=== PATIENT | male | born 1990 | race Caucasian/White ===

== ENCOUNTER 2021-07-24 13:41 | Outpatient (CLI) | payer BC, SELFPAY ==
[2021-07-24 14:28] LABS: D Dimer <= 0.27 ug/mIFEU (0-0.59)
== END 2021-07-24 13:42 | disposition home or self-care (01) ==
PROVIDERS: Visit Provider Family Medicine
DX: R07.9 Chest pain, unspecified (principal)
CPT/HCPCS: 85378

== ENCOUNTER 2021-08-13 12:35 | Outpatient (CLI) | payer BC, SELFPAY ==
--- NOTE | 2021-08-13 13:43 | PFTS_ITS ---
Date of Study:08/13/21 Date of Dictation: MECHANICS: Forced vital capacity (FVC) is normal. Forced expiratory volume in one second (FEV1) is reduced. FEV1/FVC is reduced. FLOW VOLUME LOOP: Reduced flow at all lung volumes with significant scooping. LUNG VOLUMES: Total lung capacity (TLC) is normal. Residual volume (RV) is normal. DIFFUSING CAPACITY FOR CARBON MONOXIDE: Normal but likely erroneous. INTERPRETATION: The prebronchodilator spirometry is consistent with moderate airflow obstruction. No postbronchodilator spirometry was performed. Lung volumes are normal. Gas exchange (DLCO) is normal but likely an erroneous measurement. MTDD
== END 2021-08-13 12:36 | disposition home or self-care (01) ==
LOC: RT 12:38
PROVIDERS: PCP Nurse Practitioner; Visit Provider Nurse Practitioner
DX: J45.909 Unspecified asthma, uncomplicated (principal)
CPT/HCPCS: 94010; 94726; 94729

== ENCOUNTER 2021-09-03 15:32 | Outpatient (CLI) | payer BC, SELFPAY ==
--- NOTE | 2021-09-03 | USCV_ITS ---
DharmeshManuel johnston Age: 30 Gender: M : 1990 Exam Date: 09/03/2021 16:06 Ordering Phys: Kati Hernandez Technologist: LARRY Exam Location: [facility] Indication: c/o constant SOB x 2 months. No hx cardiac intervention. BP: / HR: 64 Rhythm: Sinus Technical Quality: Good MEASUREMENTS (Male / Female) Normal Values 2D ECHO LV Diastolic Diameter PLAX 5.2 cm 4.2 - 5.9 / 3.9 - 5.3 cm LV Systolic Diameter PLAX 3.6 cm IVS Diastolic Thickness 1.2 cm 0.6 - 1.0 / 0.6 - 0.9 cm IVS Systolic Thickness 1.9 cm LVPW Diastolic Thickness 1.2 cm 0.6 - 1.0 / 0.6 - 0.9 cm LVPW Systolic Thickness 1.5 cm LVOT Diameter 1.9 cm LV Ejection Fraction 2D Teich 54.0 % LV Ejection Fraction MOD 2C 71.9 % LV Ejection Fraction 2C AL 73.1 % LA Diameter 3.1 cm LA Width 3.7 cm LA Height 4.0 cm RA Width 4.0 cm RA Height 4.4 cm Aorta at Sinotubular Diameter 3.1 cm M-MODE Aortic Annulus Diameter 3.1 cm LA Ao Ratio MM 0.9 MV E Point Septal Separation 0.3 cm DOPPLER AV Peak Velocity 103.0 cm/s LVOT Peak Velocity 81.0 cm/s AV Area Cont Eq vti 2.0 cm squared AV Area Cont Eq pk 2.3 cm squared MV Peak Velocity 70.0 cm/s MV Area PHT 5.1 cm squared Mitral E to A Ratio 1.2 MV E' Velocity 36.0 cm/s Mitral E to MV E' Ratio 5.9 Mitral E to LV E' Lateral Ratio 5.1 Mitral E to LV E' Septal Ratio 7.1 TR Peak Velocity 209.8 cm/s TR Peak Gradient 17.6 mmHg TV Peak E Velocity 55.0 cm/s Right Atrial Pressure 5.0 mmHg Pulmonary Artery Systolic Pressu 22.6 mmHg PV Peak Velocity 89.0 cm/s RV Acceleration Time 0.1 s RV Ejection Time 0.4 s RV AcT/ET 0.3 FINDINGS Left Ventricle Normal left ventricular size and systolic function, EF 66 %. No regional wall motion abnormalities. Right Ventricle The right ventricle is normal in size and function. Right Atrium The right atrium is normal in size. Left Atrium The left atrium is normal in size. Mitral Valve No gross abnormalities noted Aortic Valve No gross abnormalities noted Tricuspid Valve Mild tricuspid valve regurgitation. Pulmonic Valve No gross abnormalities noted Pericardium Normal pericardium without effusion. Aorta Normal ascending aorta dimension. CONCLUSIONS Normal left ventricular size and systolic function, EF 66 %. No regional wall motion abnormalities. Mild tricuspid valve regurgitation. Normal cardiac chamber sizes. No significant valvular abnormalities. There is no pericardial effusion. No previous study is available for comparison. Dr Pili Chairez MD FACC (Electronically Signed) Final Date: 03 September 2021 17:40 S
== END 2021-09-03 15:33 | disposition home or self-care (01) ==
PROVIDERS: PCP Nurse Practitioner; Visit Provider Nurse Practitioner
DX: R94.31 Abnormal electrocardiogram [ECG] [EKG] (principal); I07.1 Rheumatic tricuspid insufficiency
CPT/HCPCS: 93306

== ENCOUNTER 2021-10-15 19:44 | Emergency (ER) | payer BC, SELFPAY ==
--- NOTE | 2021-10-15 19:51 | ECG_ITS ---
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 Measurements Intervals [place] Rate: 76 P: 64 DC: 167 QRS: 86 QRSD: 102 T: 58 QT: 375 QTc: 423 Interpretive Statements SINUS RHYTHM INTERPRETATION BASED ON A DEFAULT AGE OF 40 YEARS No previous ECG available for comparison Electronically Signed On 10-16-2021 20:03:25 HIGH SCHOOL FOOTBALL COACH by Pili Chairez M.D. [id number]
[2021-10-15 19:53] VITALS: BP 135/83; PULSE 75; RESP 28; TEMP 36.3; O2SAT 100; BMI 27.4
--- NOTE | 2021-10-15 20:55 | ED_ITS ---
HPI - Chest Pain General: Chief Complaint: Chest Pain Stated Complaint: Chest pain/SOB Time Seen by Provider: 10/15/21 20:55 History of Present Illness: 31-year-old male patient comes in today for concerns of being awakened at night with a cough. Patient also reports some epigastric discomfort and sternal chest pain. Patient reports symptoms been going on for approximately 4 months. Patient was evaluated about 6 months ago had a EKG done which shows some abnormalities at that time a echocardiogram was performed and a tricuspid valve mild regurgitation was noted. Patient has been placed on some sertraline for concerns of anxiety. Patient denies any drug allergies. Patient reports used to smoke tobacco but has been more than 5 years. Denies any other drugs or alcohol. Patient has no history of surgeries. Patient reports that his family history includes his mother has arrhythmia. MD complaint: chest discomfort Pertinent past history: asthma (Patient denies asthma although it is in the record) Onset (ago): month(s) Relieving factors: nothing Exacerbating factors: nothing Associated symptoms: Reports palpitations Review of Systems General: Reports: 10 or more systems reviewed and unremarkable except in HPI and below Card: Reports: chest pain and palpitations Physical Exam Const: COMMON NORMALS: alert HENMT: COMMON NORMALS: atraumatic HEAD & SCALP: atraumatic Resp: COMMON NORMALS: normal respiratory effort and clear to auscultation bilaterally AUSCULTATION: clear to auscultation bilaterally Cardio: COMMON NORMALS: regular rate and regular rhythm RATE: regular rate RHYTHM: regular rhythm GI: COMMON NORMALS: Soft to palpation PALPATION: Yes Soft to palpation Extremity: COMMON NORMALS: normal to inspection and no pedal edema Neuro: SENSORIUM/ORIENTATION: Yes alert Psych: COMMON NORMALS: cooperative MOOD & AFFECT: Yes anxious Skin: COMMON NORMALS: no rashes or lesions noted GENERAL SKIN EXAM: no rashes or lesions noted Course Vital Signs: Vital signs: Vital Signs Temperature 97.4 F L 10/15/21 19:53 Pulse Rate 75 10/15/21 19:53 Respiratory Rate 28 H 10/15/21 19:53 Blood Pressure 135/83 10/15/21 19:53 Pulse Oximetry 100 10/15/21 19:53 MDM - Chest Pain Medical Decision Making 31-year-old male patient comes in today with complaints of chest discomfort and episodes of coughing at night with some shortness of breath. On exam patient appears well. Patient appears no acute distress. Abdomen is soft and nontender. No chest wall tenderness is noted. Heart rate is regular. Vital signs are normal. Differential diagnosis includes but not limited to ACS, pneumonia, GERD. Laboratory values were normal. Chest x-ray was normal. EKG was normal. Reviewing patient's complaints and symptoms I think he might have some GERD which is causing some coughing fits at night. I am going to start patient on some pantoprazole for a trial to see if we can get improvements. Patient should continue with plan for cardiology and pulmonology evaluation, although this probably be the explanation for patient's symptoms. Lab Data : 10/15/21 21:05 10/15/21 21:05 Radiology Impressions Chest X-Ray 10/15/21 IMPRESSION: No acute findings. Laboratory Results WBC 9.3 10^3/uL (4.0-10.0) 10/15/21 21:05 RBC 5.39 10^6/uL (4.1-5.3) H 10/15/21 21:05 Hgb 16.3 g/dL (11.7-16.6) 10/15/21 21:05 Hct 47.5 % (42.0-52.0) 10/15/21 21:05 MCV 88.1 fl (80-94) 10/15/21 21:05 MCH 30.2 pg (28.0-34.0) 10/15/21 21:05 MCHC 34.3 g/dL (30.0-36.0) 10/15/21 21:05 RDW 11.6 % (12.1-15.1) L 10/15/21 21:05 Plt Count 218 10^3/cmm (130-400) 10/15/21 21:05 MPV 9.3 fL (7.4-10.4) 10/15/21 21:05 Neut % (Auto) 64.3 % 10/15/21 21:05 Lymph % (Auto) 23.9 % 10/15/21 21:05 [place] % (Auto) 7.4 % 10/15/21 21:05 Eos % (Auto) 3.8 % 10/15/21 21:05 Baso % (Auto) 0.3 % 10/15/21 21:05 Neut # (Auto) 5.95 10^3/uL (1.8-7.7) 10/15/21 21:05 Lymph # (Auto) 2.2 10^3/uL (0.8-4.8) 10/15/21 21:05 Boy[place] # (Auto) 0.7 10^3/uL (0.2-0.9) 10/15/21 21:05 Eos # (Auto) 0.4 10^3/uL (0.0-0.8) 10/15/21 21:05 Baso # (Auto) 0.0 10^3/uL (0.0-0.1) 10/15/21 21:05 Nucleated RBC % (auto) 0 % 10/15/21 21:05 Nucleated RBCs # 0.0 /100WBC 10/15/21 21:05 Sodium 139 mmol/L (136-145) 10/15/21 21:05 Potassium 3.6 mmol/L (3.5-5.1) 10/15/21 21:05 Chloride 102 mmol/L (98-107) 10/15/21 21:05 Carbon Dioxide 23 mmol/L (22-29) 10/15/21 21:05 Anion Gap 17.6 (5-19) 10/15/21 21:05 BUN 21 mg/dL (6-20) H 10/15/21 21:05 Creatinine 0.9 mg/dL (0.7-1.2) 10/15/21 21:05 GFR Calculation 97.8 mL/min (90-130) 10/15/21 21:05 Glucose 101 mg/dL (65-115) 10/15/21 21:05 Calculated Osmolality 291 mOsm/kg (285-295) 10/15/21 21:05 Calcium 9.8 mg/dL (8.5-10.5) 10/15/21 21:05 Total Bilirubin 0.4 mg/dL (0.15-1.2) 10/15/21 21:05 AST 22 U/L (0-40) 10/15/21 21:05 ALT 26 U/L (0-41) 10/15/21 21:05 Alkaline Phosphatase 68 IU/L (40-130) 10/15/21 21:05 Troponin T Baseline 6 ng/L (0-15) 10/15/21 21:05 Total Protein 7.3 g/dL (6.6-8.7) 10/15/21 21:05 Albumin 4.9 g/dL (3.5-5.2) 10/15/21 21:05 Globulin 2.4 g/dL (1.3-4.6) 10/15/21 21:05 EKG Data EKG 1: EKG interpretation date: 10/15/21 EKG interpretation time: 22:35 Interpretation: EKG shows a sinus rhythm with regular rate at 75 bpm. No ectopy or ST elevation is noted. No prior exam was available for comparison. Discharge Plan Discharge Patient Disposition: Home Clinical Impression: Atypical chest pain GERD (gastroesophageal reflux disease) Qualifiers: Esophagitis presence: esophagitis presence not specified Qualified Code(s): K21.9 - Gastro-esophageal reflux disease without esophagitis Condition: Stable Prescriptions: New pantoprazole 40 mg tablet,delayed release (DR/EC) 40 mg PO DAILY 28 Days Qty: 30 0RF Discharge Orders: Discharge ED (Routine); Ordered 10/15/21 Ordered By: Chris Pennington Referrals: Kati Hernandez FNP [Primary Care Provider] - Discharge Diet: Usual diet Discharge Activity: Increase activity as tolerated Patient Instructions: GERD (Gastroesophageal Reflux Disease) (ED) Activity Restrictions/Additional Instructions: Home and rest. Continue with routine care. Avoid eating 2 hours before bedtime. Decrease consumption of carbonated beverages. Healthy diet and activity. Follow-up with specialists as scheduled. Return to ER for new concerns. Coding Level of Care Code ED Plant Protection Superintendent for Chg Fwd Exam Comprehensive
[2021-10-15 21:07] LABS: Basophils % 0.3 %; Eosinophils # 0.4 10^3/uL (0.0-0.8); Eosinophils % 3.8 %; Hematocrit 47.5 % (42.0-52.0); Hemoglobin 16.3 g/dL (11.7-16.6); Lymphocytes # 2.2 10^3/uL (0.8-4.8); Lymphocytes % 23.9 %; Mean Corpuscular HGB Conc 34.3 g/dL (30.0-36.0); Mean Corpuscular Hemoglobin 30.2 pg (28.0-34.0); Mean Corpuscular Volume 88.1 fl (80-94); Mean Platelet Volume 9.3 fL (7.4-10.4); Monocytes # 0.7 10^3/uL (0.2-0.9); Monocytes % 7.4 %; Neutrophils # 5.95 10^3/uL (1.8-7.7); Neutrophils % 64.3 %; Nucleated Red Blood Cells % 0 %; Platelet Count 218 10^3/cmm (130-400); Red Blood Count 5.39 10^6/uL (4.1-5.3); Red Cell Distribution Width 11.6 % (12.1-15.1); White Blood Count 9.3 10^3/uL (4.0-10.0)
[2021-10-15 21:23] LABS: Troponin(5th) Baseline 6 ng/L (0-15)
--- NOTE | 2021-10-15 21:23 | XRR_ITS ---
PROCEDURE INFORMATION: Exam: XR Chest Exam date and time: 10/15/2021 9:23 PM Age: 31 years old Clinical indication: Chest wall pain; Additional info: Chest pressure TECHNIQUE: Imaging protocol: XR of the chest. Views: 1 view. COMPARISON: CR XR chest 2V* [id number] 07/23/2021 8:39 AM FINDINGS: Lungs: Unremarkable. No consolidation. Pleural spaces: Unremarkable. No pleural effusion. No pneumothorax. Heart/Mediastinum: Unremarkable. No cardiomegaly. Bones/joints: Unremarkable. XR/XR chest 1V portable [id number] IMPRESSION: No acute findings.
[2021-10-15 21:24] LABS: Alanine Aminotransferase 26 U/L (0-41); Albumin Level 4.9 g/dL (3.5-5.2); Alkaline Phosphatase 68 IU/L (40-130); Aspartate Amino Transferase 22 U/L (0-40); Blood Urea Nitrogen 21 mg/dL (6-20); Calcium 9.8 mg/dL (8.5-10.5); Carbon Dioxide 23 mmol/L (22-29); Chloride 102 mmol/L (98-107); Globulin 2.4 g/dL (1.3-4.6); Glomerular Filtration Rate 97.8 mL/min (90-130); Glucose 101 mg/dL (65-115); Osmolality Calculated 291 mOsm/kg (285-295); Sodium 139 mmol/L (136-145); Total Bilirubin 0.4 mg/dL (0.15-1.2); Total Protein 7.3 g/dL (6.6-8.7)
[2021-10-15 21:26] LABS: Anion Gap 17.6 (5-19); Potassium 3.6 mmol/L (3.5-5.1)
[2021-10-15 23:05] VITALS: BP 115/79; PULSE 62; RESP 16; O2SAT 97
== END 2021-10-15 23:06 | disposition home or self-care (01) ==
PROVIDERS: Emergency Medicine; Emergency Provider Nurse Practitioner Family; PCP Nurse Practitioner
DX: R07.89 Other chest pain (principal); K21.9 Gastro-esophageal reflux disease without esophagitis
CPT/HCPCS: 71045; 80053; 84484; 85025; 93005

== ENCOUNTER → 2021-11-07 16:25 | Outpatient (BNVA) | payer BC, SELFPAY | PROVIDERS: PCP Nurse Practitioner; Visit Provider Internal Medicine Critical Care Medicine | DX: J45.909 Unspecified asthma, uncomplicated (principal); R06.02 Shortness of breath; F41.9 Anxiety disorder, unspecified | CPT/HCPCS: 82785; 86003 ==

== ENCOUNTER 2022-02-07 07:50 | Day surgery (SDC) | payer BC, SELFPAY ==
[2022-02-06 11:38] VITALS: BMI 25.7
[2022-02-07 08:17] VITALS: BP 130/81; PULSE 65; RESP 16; TEMP 36.4; O2SAT 97
[2022-02-07] MEDS: sodium chloride 0.9% 1,000 ML 30 ML IV (08:36)
--- NOTE | 2022-02-07 08:56 | ANES.PREANE2 ---
Pre-Anesthetic Assessment Height/Weight: Height 1.63 m Weight 68.039 kg Temp Pulse Resp BP Pulse Ox 97.6 F 65 16 130/81 97 02/07/22 08:17 02/07/22 08:17 02/07/22 08:17 02/07/22 08:17 02/07/22 08:17 Preop Diagnosis: upper gi symptoms Operation Date: 02/07/22 10:00 Proposed Procedures p EGD 08729/r10.9(Not Applicable) - Myron Mann MD Familial anesthetic complications: None Was Beta Ronda taken within 24 hours: N/A Was Clonidine taken within 24 hours: N/A Last intake: Intake Last Liquid Date 02/06/22 Last Liquid Time 21:00 Last Solid Date 02/06/22 Last Solid Time 18:00 Social No alcohol and No tobacco Exam alert, oriented x 3, clear to auscultation bilaterally and regular rate & rhythm Airway Submandibular: within normal limits Cervical ROM: within normal limits Mallampati: Class II Dentition: full Comments: Comments: braces Pulmonary Asthma Neuropsych Anxiety Anesthetic Plan ASA status: 2 Anesthesia: MAC Medications/Allergies Home Medications Medication Instructions Recorded Confirmed Last Taken Type sertraline 25 mg tablet 25 mg PO DAILY 10/28/21 02/07/22 02/06/22 History fluticasone furoate 200 1 inh INHALATION DAILY 30 Days #60 01/10/22 02/07/22 02/05/22 Rx mcg-vilanterol 25 mcg/dose ea inhalation powder (Breo Ellipta) montelukast 10 mg tablet 10 mg PO DAILY 60 Days #60 tab 01/10/22 02/07/22 02/06/22 Rx (Singulair) Allergies Allergy/AdvReac Type Severity Reaction Status Date / Time No Known Allergies Allergy Verified 02/07/22 08:13 Current Medications Generic Name Dose Route Start Last Admin Trade Name Freq PRN Reason Stop Dose Admin Sodium Chloride 1,000 mls @ 30 mls/hr 02/07/22 08:15 02/07/22 08:36 Sodium Chloride 0.9% IV 02/08/22 08:14 30 mls/hr .Q24H BILL Administration PFSH Anesthesia Medical History Anxiety Asthma Tricuspid valve regurgitation Family History Mother Arrhythmia Social History Smoking and tobacco status: never smoked Alcohol intake: former Data Anesthesia Cardiac Studies: Echocardiogram 09/03/21 Holter Monitor 10/29/21
--- NOTE | 2022-02-07 10:54 | W.PM.OPSFHP ---
Same Day Surgery H&P Indication for Procedure/HPI DATE OF PROCEDURE: February 07, 2022 CHIEF COMPLAINT/INDICATIONFOR SURGICAL PROCEDURE: egd PREOP DIAGNOSIS: upper gi symptoms PLANNED PROCEDURE: Operation Date: 02/07/22 10:00 Proposed Procedures p EGD 41652/r10.9(Not Applicable) - Myron Mann MD Medications/Allergies* Home Medications Medication Instructions Recorded Confirmed Type sertraline 25 mg tablet 25 mg PO DAILY 10/28/21 02/07/22 History Allergies/Adverse Reactions Allergy/AdvReac Type Severity Reaction Status Date / Time No Known Allergies Allergy Verified 02/07/22 08:13 Current Medications: Generic Name Dose Route Start Last Admin Trade Name Freq PRN Reason Stop Dose Admin Sodium Chloride 1,000 mls @ 30 mls/hr 02/07/22 08:15 02/07/22 08:36 Sodium Chloride 0.9% IV 02/08/22 08:14 30 mls/hr .Q24H BILL Administration Pertinent History/Comorbid Conditions* Medical History (Updated 12/17/21 @ 14:32 by Myron Mann MD) Anxiety Asthma Tricuspid valve regurgitation Family History (Updated 10/28/21 @ 12:53 by Ashly Hickman RN) Arrhythmia Mother Social History Smoking and tobacco status: never smoked Alcohol intake: former Pertinent Exam Findings alert, oriented x 3 and regular rate & rhythm Recommendations Surgery/Procedure today Coding Level of Care Code Acute Facility Mechanic for Alexei Ladd
[2022-02-07 11:19] VITALS: BP 103/65; PULSE 59; RESP 18; TEMP 36.2; O2SAT 96
[2022-02-07 11:32] VITALS: BP 113/68; PULSE 55; RESP 18; O2SAT 97
--- NOTE | 2022-02-07 12:04 | ANE.PACU2 ---
Inpatient post-anesthesia follow up: Airway intact: Yes Vital signs: Temperature 97.1 F Pulse Rate 55 Respiratory Rate 18 Blood Pressure 113/68 Pulse Oximetry 97 Oxygen Delivery Me thod Room Air Oxygen Flow Rate 4 Fraction of Inspir ed Oxygen Hydration adequate: Yes Nausea and vomiting: No Pain level: 1 Mental status: Baseline
== END 2022-02-07 11:38 | disposition home or self-care (01) ==
PROVIDERS: Visit Provider Surgery
PROC: 0DJ08ZZ Inspection of Upper Intestinal Tract, Via Natural or Artificial Opening Endoscopic (ICD-10-PCS; CPT 43235; principal; 2022-02-07 10:00)
DX: R10.9 Unspecified abdominal pain (principal)
CPT/HCPCS: 43239; 88305; J2704; J7030

== ENCOUNTER 2022-03-14 07:04 | Outpatient (CLI) | payer BC, SELFPAY ==
--- NOTE | 2022-03-14 07:00 | US_ITS ---
WS: [id number] ULTRASOUND ABDOMEN LIMITED CLINICAL INFORMATION: R10.9 - Unspecified abdominal pain COMPARISON: None. FINDINGS: Liver Size: Normal. Craniocaudal length: 15.7 cm. Echogenicity: Normal. Surface nodularity: None. Mass (size and location): None. Bile ducts Intrahepatic ducts: Normal. Common bile duct diameter: 0.4 cm. Gallbladder Normal. Gallstones: None. Gallbladder sludge: None. Gallbladder wall thickening: None. Pericholecystic fluid: None. Sonographic Mclain sign: Absent. Pancreas Normal as visualized. Right kidney: Normal. Hydronephrosis: None. Size: 11.2 cm x 4.9 cm x 4.8 cm. Abdominal aorta and IVC Visualized portions are normal. Ascites: None. US/US gall bladder 01312 IMPRESSION: 1. Normal liver. 2. Normal gallbladder. No cholelithiasis. 3. Normal common bile duct. 4. No hydronephrosis in RIGHT kidney. 5. No ascites.
== END 2022-03-14 07:05 | disposition home or self-care (01) ==
PROVIDERS: Visit Provider Surgery
DX: R10.9 Unspecified abdominal pain (principal)
CPT/HCPCS: 76705

== ENCOUNTER 2025-02-02 00:26 | Emergency (ER) | payer OTHER, SELFPAY ==
[2025-02-02 00:29] VITALS: BP 165/85; PULSE 79; RESP 18; TEMP 36.4; O2SAT 100; BMI 27.4
[2025-02-02] MEDS: sodium chloride 0.9% 1,000 ML 999 ML IV (01:10)
[2025-02-02] MEDS: diazePAM 5 mg Tablet PO (01:10)
--- NOTE | 2025-02-02 01:12 | ECG_ITS ---
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 Measurements Intervals [place] Rate: 55 P: 57 VA: 194 QRS: 71 QRSD: 105 T: 50 QT: 408 QTc: 391 Interpretive Statements SINUS BRADYCARDIA INCOMPLETE RIGHT BUNDLE BRANCH BLOCK [90+ ms QRS DURATION, TERMINAL R IN V1/V2, 40+ ms S IN I/aVL/V4/V5/V6] Compared to ECG 10/15/2021 20:04:50 Incomplete right bundle-branch block now present Sinus rhythm no longer present Electronically Signed On 02-03-2025 14:59:13 CDT by Jay Sifuentes M.D. [id number] [id number]
[2025-02-02 01:22] LABS: Basophils % 0.3 %; Eosinophils # 0.2 10^3/uL (0.0-0.8); Eosinophils % 3.4 %; Hematocrit 44.6 % (37-53); Lymphocytes # 1.6 10^3/uL (0.8-4.8); Lymphocytes % 25.9 %; Mean Corpuscular HGB Conc 34.3 g/dL (30-55); Mean Corpuscular Hemoglobin 30.4 pg (27-33); Mean Corpuscular Volume 88.7 fl (82-101); Mean Platelet Volume 9.5 fL (7.4-10.4); Monocytes # 0.6 10^3/uL (0.2-0.9); Monocytes % 8.9 %; Neutrophils # 3.76 10^3/uL (1.8-7.7); Neutrophils % 61.2 %; Nucleated Red Blood Cells % 0 %; Platelet Count 205 10^3/cmm (157-399); Red Blood Count 5.03 10^6/uL (3.85-5.65); Red Cell Distribution Width 11.9 % (12.1-15.1); White Blood Count 6.15 10^3/uL (3.29-11.43)
[2025-02-02 02:09] LABS: Alanine Aminotransferase 21 U/L (0-41); Albumin Level 3.8 g/dL (3.5-5.2); Alkaline Phosphatase 55 U/L (40-130); Anion Gap 15.3 (5-19); Aspartate Amino Transferase 17 U/L (0-40); Blood Urea Nitrogen 17 mg/dL (6-20); Calcium 8.8 mg/dL (8.5-10.5); Carbon Dioxide 24 mmol/L (22-29); Chloride 105 mmol/L (98-107); Creatinine Clr Calc Pharmacy 134.4792; Globulin 2.2 g/dL (1.3-4.6); Glomerular Filtration Rate 128.3 mL/min (90-130); Glucose 102 mg/dL (65-115); Osmolality Calculated 294 mOsm/kg (285-295); Potassium 3.3 mmol/L (3.5-5.1); Sodium 141 mmol/L (136-145); Thyroid Stimulating Hormone 4.04 uIU/mL (0.27-4.20); Total Bilirubin 0.4 mg/dL (0.15-1.2)
--- NOTE | 2025-02-02 03:14 | W.ED.ANXIETY ---
HPI - Anxiety General: Chief Complaint: Anxiety Stated Complaint: Panic Attack Time Seen by Provider: 02/02/25 00:53 History of Present Illness: Pt with a history of anxiety and panic attacks reports restarting Zoloft approximately three weeks ago after being off for about a year. Since restarting, pt describes significantly worsened anxiety and panic, with persistent symptoms including inability to sleep, feeling of constant adrenaline, chest tightness, dry mouth, and a slight headache. Pt denies fever, cough, abdominal pain, nausea, or vomiting. No other medication changes reported. Pt states these panic attacks are more severe than previous episodes and have persisted without relief for three weeks. Pt has continued working during this period but feels exhausted and at their limit due to lack of sleep. Related Data Home Medications ?Medication ?Instructions ?Recorded ?Confirmed sertraline 25 mg tablet 25 mg PO DAILY 10/28/21 10/16/22 Previous Rx's ?Medication ?Instructions ?Recorded pantoprazole 40 mg tablet,delayed 40 mg PO ONCE 30 days #30 tabs 03/18/22 release (Protonix) dicyclomine 10 mg capsule 10 mg PO QID #120 caps 08/29/22 albuterol sulfate 90 mcg/actuation 1 inh inhalation QID PRN shortness 10/16/22 aerosol inhaler (Ventolin HFA) of breath or wheezing #8.5 grams fluticasone furoate 100 1 inh inhalation DAILY #60 ea 10/20/22 mcg-vilanterol 25 mcg/dose inhalation powder (Breo Ellipta) montelukast 10 mg tablet 10 mg PO DAILY 60 days #60 tabs 03/30/23 (Singulair) clonazepam 0.5 mg tablet (Klonopin) 0.5 mg PO DAILY PRN panic attack 02/02/25 #14 tabs Allergies Allergy/AdvReac Type Severity Reaction Status Date / Time No Known Allergies Allergy Verified 10/16/22 08:48 [facility] ED PFSH: Medical History Anxiety Asthma Tricuspid valve regurgitation Surgical History History of esophagogastroduodenoscopy (EGD) 02/07/22 Family History Mother Arrhythmia Social History Smoking and tobacco/nicotine status: former use of tobacco/nicotine Quit status (tobacco/nicotine): has quit using Year quit tobacco: 2014 Former quit date comment: 1ppd x 4 years Alcohol intake: former Substance/Drug Use: never Physical Exam Const: COMMON NORMALS: no acute distress, patient oriented x3 and alert HENMT: COMMON NORMALS: normocephalic and atraumatic HEAD & SCALP: normocephalic and atraumatic Eye: COMMON NORMALS: Equal, round and reactive pupils present, EOMs intact bilaterally and no scleral icterus PUPIL: Yes Equal, round and reactive pupils present Resp: COMMON NORMALS: normal respiratory effort and No retractions Cardio: COMMON NORMALS: regular rate, regular rhythm and No murmurs present (Cardio) RATE: regular rate RHYTHM: regular rhythm GI: COMMON NORMALS: Normal to inspection, nondistended, normoactive bowel sounds present, Soft to palpation and non-tender PALPATION: Yes Soft to palpation Neuro: COMMON NORMALS: patient oriented x3 SENSORIUM/ORIENTATION: Yes alert Psych: OTHER: Anxious, no SI or HI, no delusions or hallucinations. Skin: COMMON NORMALS: no rashes or lesions noted GENERAL SKIN EXAM: no rashes or lesions noted Course Vital Signs: Vital signs: Vital Signs Temperature 97.5 F L 02/02/25 00:29 Pulse Rate 79 02/02/25 00:29 Respiratory Rate 18 02/02/25 00:29 Blood Pressure 165/85 02/02/25 00:29 Pulse Oximetry 100 02/02/25 00:29 MDM - Anxiety Medical Decision Making In summary, patient is a generally well-appearing 34-year-old male seen for what appears to be a panic attack. He states that he is not able to sleep very well for the last 3 weeks, only sleeping for roughly 1 to 2 hours at a time. He has been taking his normal prescribed sertraline without effect for 3 weeks. After receiving a single dose of 0.5 mg clonazepam he was able to sleep and feels much better. I cautioned him that he should only take clonazepam when feeling excessive levels of panic and that taking it every day can lead to habituation and dependence. He shows good understanding and agrees to the plan and will be discharged in stable and improved condition follow-up primary care for further management of what appears to be a panic attack superimposed on anxiety Lab Data 02/02/25 01:11 02/02/25 01:33 Laboratory Results WBC 6.15 10^3/uL (3.29-11.43) 02/02/25 01:11 RBC 5.03 10^6/uL (3.85-5.65) 02/02/25 01:11 Hgb 15.30 g/dL (11.27-16.99) 02/02/25 01:11 Hct 44.6 % (37-53) 02/02/25 01:11 MCV 88.7 fl (82-101) 02/02/25 01:11 MCH 30.4 pg (27-33) 02/02/25 01:11 MCHC 34.3 g/dL (30-55) 02/02/25 01:11 RDW 11.9 % (12.1-15.1) L 02/02/25 01:11 Plt Count 205 10^3/cmm (157-399) 02/02/25 01:11 MPV 9.5 fL (7.4-10.4) 02/02/25 01:11 Neut % (Auto) 61.2 % 02/02/25 01:11 Lymph % (Auto) 25.9 % 02/02/25 01:11 [place] % (Auto) 8.9 % 02/02/25 01:11 Eos % (Auto) 3.4 % 02/02/25 01:11 Baso % (Auto) 0.3 % 02/02/25 01:11 Neut # (Auto) 3.76 10^3/uL (1.8-7.7) 02/02/25 01:11 Lymph # (Auto) 1.6 10^3/uL (0.8-4.8) 02/02/25 01:11 [place] # (Auto) 0.6 10^3/uL (0.2-0.9) 02/02/25 01:11 Eos # (Auto) 0.2 10^3/uL (0.0-0.8) 02/02/25 01:11 Baso # (Auto) 0.0 10^3/uL (0.0-0.1) 02/02/25 01:11 Nucleated RBC % (auto) 0 % 02/02/25 01:11 Nucleated RBCs # 0.0 /100WBC 02/02/25 01:11 Sodium 141 mmol/L (136-145) 02/02/25 01:33 Potassium 3.3 mmol/L (3.5-5.1) L 02/02/25 01:33 Chloride 105 mmol/L (98-107) 02/02/25 01:33 Carbon Dioxide 24 mmol/L (22-29) 02/02/25 01:33 Anion Gap 15.3 (5-19) 02/02/25 01:33 BUN 17 mg/dL (6-20) 02/02/25 01:33 Creatinine 0.7 mg/dL (0.7-1.2) 02/02/25 01:33 GFR Calculation 128.3 mL/min (90-130) 02/02/25 01:33 Glucose 102 mg/dL (65-115) 02/02/25 01:33 Calculated Osmolality 294 mOsm/kg (285-295) 02/02/25 01:33 Calcium 8.8 mg/dL (8.5-10.5) 02/02/25 01:33 Total Bilirubin 0.4 mg/dL (0.15-1.2) 02/02/25 01:33 AST 17 U/L (0-40) 02/02/25 01:33 ALT 21 U/L (0-41) 02/02/25 01:33 Alkaline Phosphatase 55 U/L (40-130) 02/02/25 01:33 Total Protein 6.0 g/dL (6.6-8.7) L 02/02/25 01:33 Albumin 3.8 g/dL (3.5-5.2) 02/02/25 01:33 Globulin 2.2 g/dL (1.3-4.6) 02/02/25 01:33 TSH 4.04 uIU/mL (0.27-4.20) 02/02/25 01:33 No radiology studies performed this visit EKG Data EKG 1: Interpretation: Time?0112?sinus bradycardia, rate of 55, no ST segment elevation or depression, no T wave inversions, intervals within normal limits. QTc = 396 Discharge Plan Discharge Patient Disposition: Home Clinical Impression: Acute anxiety Condition: Stable Prescriptions: New clonazepam [Klonopin] 0.5 mg tablet 0.5 mg PO DAILY PRN (Reason: panic attack) Qty: 14 0RF No Action sertraline 25 mg tablet 25 mg PO DAILY pantoprazole [Protonix] 40 mg tablet,delayed release (DR/EC) 40 mg PO ONCE 30 Days Qty: 30 3RF albuterol sulfate [Ventolin HFA] 90 mcg/actuation HFA aerosol inhaler 1 inh inhalation QID PRN (Reason: shortness of breath or wheezing) Qty: 8.5 3RF dicyclomine 10 mg capsule 10 mg PO QID Qty: 120 11RF fluticasone furoate-vilanterol [Breo Ellipta] 100-25 mcg/dose blister with device 1 inh inhalation DAILY Qty: 60 3RF montelukast [Singulair] 10 mg tablet 10 mg PO DAILY 60 Days Qty: 60 6RF Discharge Orders: Discharge ED (Routine); Ordered 02/02/25 Ordered By: Johnathan Lay Patient Instructions: Panic Attack (ED) Activity Restrictions/Additional Instructions: Please follow-up closely with your primary care physician to see whether they would like to continue giving you the medication I prescribed for panic attacks. This should not be something you take on a daily basis but only when you have severe panic attacks. Please continue taking all your other medications as prescribed. Print Language: Kyrgyz Coding Level of Care Code ED Lens Molding Equipment Operator for Alexei Ladd
[2025-02-02 03:19] VITALS: BP 121/68; PULSE 57; O2SAT 97
== END 2025-02-02 03:24 | disposition home or self-care (01) ==
PROVIDERS: Emergency Provider Student in an Organized Health Care Education/Training Program
DX: F41.9 Anxiety disorder, unspecified (principal); F41.0 Panic disorder [episodic paroxysmal anxiety]; Z79.899 Other long term (current) drug therapy
CPT/HCPCS: 36415; 80053; 84443; 85025; 93005; 96360; 96361; 99284; J7030; J9999

== ENCOUNTER 2025-02-26 09:59 | Emergency (ER) | payer OTHER, SELFPAY ==
[2025-02-26 10:12] VITALS: BP 143/90; PULSE 79; RESP 18; TEMP 36.8; O2SAT 99; BMI 24.0
--- NOTE | 2025-02-26 10:21 | W.ED.PSYCHS ---
Documented by User: Remi Banuelos MD 02/26/25 11:35 HPI - Psych General: Chief Complaint: Psychiatric Symptoms Stated Complaint: SI Time Seen by Provider: 02/26/25 10:05 Source: patient Mode of arrival: ambulatory Limitations: no limitations History of Present Illness: 34-year-old male he states that he has been having increased anxiety and depression. He states he has been on Lexapro and he has not been sleeping well it is causing him to have severe depression he denies any suicidal plans to me. He states has been on multiple different meds lately and they are not helping and states that he just feels like he needs help immediately. He is having some suicidal thoughts but no plan Associated symptoms: Reports depression and suicidal ideation Related Data Home Medications ?Medication ?Instructions ?Recorded ?Confirmed sertraline 25 mg tablet 25 mg PO DAILY 10/28/21 10/16/22 Previous Rx's ?Medication ?Instructions ?Recorded pantoprazole 40 mg tablet,delayed 40 mg PO ONCE 30 days #30 tabs 03/18/22 release (Protonix) dicyclomine 10 mg capsule 10 mg PO QID #120 caps 08/29/22 albuterol sulfate 90 mcg/actuation 1 inh inhalation QID PRN shortness 10/16/22 aerosol inhaler (Ventolin HFA) of breath or wheezing #8.5 grams fluticasone furoate 100 1 inh inhalation DAILY #60 ea 10/20/22 mcg-vilanterol 25 mcg/dose inhalation powder (Breo Ellipta) montelukast 10 mg tablet 10 mg PO DAILY 60 days #60 tabs 03/30/23 (Singulair) clonazepam 0.5 mg tablet (Klonopin) 0.5 mg PO DAILY PRN panic attack 02/02/25 #14 tabs Allergies Allergy/AdvReac Type Severity Reaction Status Date / Time No Known Allergies Allergy Verified 10/16/22 08:48 Review of Systems Const: Denies: fever(s), chills, body aches or change in appetite Eyes: Denies: blurry vision or eye discomfort ENMT: Denies: throat pain or dental pain Card: Denies: chest pain Resp: Denies: dyspnea GI: Denies: abdominal pain, nausea, vomiting or diarrhea : Denies: dysuria Musc: Denies: neck pain or back pain Skin/Breast: Denies: rash Neuro: Denies: headache(s) Psych: Reports: depression and suicidal ideation PFSH ED PFSH: Medical History Anxiety Asthma Tricuspid valve regurgitation Surgical History History of esophagogastroduodenoscopy (EGD) 02/07/22 Family History Mother Arrhythmia Social History Smoking and tobacco/nicotine status: former use of tobacco/nicotine Quit status (tobacco/nicotine): has quit using Year quit tobacco: 2014 Former quit date comment: 1ppd x 4 years Alcohol intake: former Substance/Drug Use: never Physical Exam Const: COMMON NORMALS: no acute distress, patient oriented x3 and healthy appearing HENMT: COMMON NORMALS: normocephalic and atraumatic HEAD & SCALP: normocephalic and atraumatic Eye: COMMON NORMALS: conjunctivae normal CONJUNCTIVA: Yes conjunctivae normal Neck/C-Spine: COMMON NORMALS: full ROM and supple Chest: COMMONS NORMALS: normal inspection of the chest Resp: COMMON NORMALS: normal respiratory effort, No retractions, No use of accessory muscles and clear to auscultation bilaterally AUSCULTATION: clear to auscultation bilaterally Cardio: COMMON NORMALS: regular rate, regular rhythm and No murmurs present (Cardio) RATE: regular rate RHYTHM: regular rhythm Extremity: COMMON NORMALS: normal to inspection and full ROM Neuro: COMMON NORMALS: patient oriented x3, moves all extremities and no focal motor deficits Psych: COMMON NORMALS: mental status grossly normal, Normal thought process present and cooperative MOOD & AFFECT: Yes depressed mood THOUGHT PROCESS: Normal thought process present Skin: COMMON NORMALS: no rashes or lesions noted and no wounds GENERAL SKIN EXAM: no rashes or lesions noted Course Vital Signs: Vital signs: Vital Signs Temperature 98.2 F 02/26/25 10:12 Pulse Rate 73 02/26/25 16:00 Respiratory Rate 18 02/26/25 10:12 Blood Pressure 132/85 02/26/25 16:00 Pulse Oximetry 99 02/26/25 16:00 Oxygen Delivery Me thod Room Air 02/26/25 10:12 MDM - Psych Medical Records I reviewed the patient's medical records. Lab Data I reviewed the patient's lab results. 02/26/25 10:27 02/26/25 10:27 Laboratory Results WBC 5.47 10^3/uL (3.29-11.43) 02/26/25 10:27 RBC 5.14 10^6/uL (3.85-5.65) 02/26/25 10:27 Hgb 15.30 g/dL (11.27-16.99) 02/26/25 10:27 Hct 46.5 % (37-53) 02/26/25 10:27 MCV 90.5 fl (82-101) 02/26/25 10:27 MCH 29.8 pg (27-33) 02/26/25 10:27 MCHC 32.9 g/dL (30-55) 02/26/25 10:27 RDW 11.7 % (12.1-15.1) L 02/26/25 10:27 Plt Count 192 10^3/cmm (157-399) 02/26/25 10:27 MPV 9.0 fL (7.4-10.4) 02/26/25 10:27 Neut % (Auto) 69.4 % 02/26/25 10:27 Lymph % (Auto) 21.4 % 02/26/25 10:27 [place] % (Auto) 7.9 % 02/26/25 10:27 Eos % (Auto) 0.7 % 02/26/25 10:27 Baso % (Auto) 0.2 % 02/26/25 10:27 Neut # (Auto) 3.80 10^3/uL (1.8-7.7) 02/26/25 10:27 Lymph # (Auto) 1.2 10^3/uL (0.8-4.8) 02/26/25 10:27 [place] # (Auto) 0.4 10^3/uL (0.2-0.9) 02/26/25 10:27 Eos # (Auto) 0.0 10^3/uL (0.0-0.8) 02/26/25 10:27 Baso # (Auto) 0.0 10^3/uL (0.0-0.1) 02/26/25 10:27 Nucleated RBC % (auto) 0 % 02/26/25 10:27 Nucleated RBCs # 0.0 /100WBC 02/26/25 10:27 Sodium 139 mmol/L (136-145) 02/26/25 10:27 Potassium 3.8 mmol/L (3.5-5.1) 02/26/25 10:27 Chloride 104 mmol/L (98-107) 02/26/25 10:27 Carbon Dioxide 20 mmol/L (22-29) L 02/26/25 10:27 Anion Gap 18.8 (5-19) 02/26/25 10:27 BUN 12 mg/dL (6-20) 02/26/25 10:27 Creatinine 0.7 mg/dL (0.7-1.2) 02/26/25 10:27 GFR Calculation 128.3 mL/min (90-130) 02/26/25 10:27 Glucose 121 mg/dL (65-115) H 02/26/25 10:27 Calculated Osmolality 289 mOsm/kg (285-295) 02/26/25 10:27 Calcium 9.4 mg/dL (8.5-10.5) 02/26/25 10:27 Total Bilirubin 0.5 mg/dL (0.15-1.2) 02/26/25 10:27 AST 19 U/L (0-40) 02/26/25 10:27 ALT 34 U/L (0-41) 02/26/25 10:27 Alkaline Phosphatase 59 U/L (40-130) 02/26/25 10:27 Total Protein 6.6 g/dL (6.6-8.7) 02/26/25 10:27 Albumin 4.4 g/dL (3.5-5.2) 02/26/25 10:27 Globulin 2.2 g/dL (1.3-4.6) 02/26/25 10:27 Salicylates < 0.3 mg/dL (3-10) L 02/26/25 10:27 Urine Opiates Screen Negative ng/mL (Negative) 02/26/25 10:11 Acetaminophen < 5.0 ug/mL (10-30) L 02/26/25 10:27 Ur Barbiturates Screen Negative ng/mL (Negative) 02/26/25 10:11 Ur Phencyclidine Scrn Negative ng/mL (Negative) 02/26/25 10:11 Ur Amphetamines Screen Negative ng/mL (Negative) 02/26/25 10:11 U Benzodiazepines Scrn Negative ng/mL (Negative) 02/26/25 10:11 Urine Cocaine Screen Negative ng/mL (Negative) 02/26/25 10:11 U Marijuana (THC) Screen Negative ng/mL (Negative) 02/26/25 10:11 Ethyl Alcohol < 10 mg/dL (0-10) 02/26/25 10:27 Influenza A (PCR) Negative (Negative) 02/26/25 10:34 Influenza Type B (PCR) Negative (Negative) 02/26/25 10:34 RSV (PCR) Negative (Negative) 02/26/25 10:34 SARS-CoV-2 (PCR) Negative (Negative) 02/26/25 10:34 All radiology interpretation(s) finalized by discharge EKG Data EKG 1: I personally reviewed and interpreted this EKG as follows: EKG interpretation date: 02/26/25 EKG interpretation time: 11:31 Interpretation: sinus daniel hr [address] or t wave abnormalities qrs 96 qtc 383 Discharge Plan Discharge Patient Disposition: Xfer Psychiatric Hosp Clinical Impression: Suicidal ideation, Depression Condition: Stable Referrals: Umang Mcnally MD [Primary Care Provider, [facility]] Print Language: Cypriot Coding Level of Care Code ED Account Service Representative for Chg Fwd Documented by User: RAUL Giron 02/26/25 18:50 HPI - Psych General: Chief Complaint: Psychiatric Symptoms Stated Complaint: SI Time Seen by Provider: 02/26/25 10:05 Related Data Home Medications ?Medication ?Instructions ?Recorded ?Confirmed sertraline 25 mg tablet 25 mg PO DAILY 10/28/21 10/16/22 Previous Rx's ?Medication ?Instructions ?Recorded pantoprazole 40 mg tablet,delayed 40 mg PO ONCE 30 days #30 tabs 03/18/22 release (Protonix) dicyclomine 10 mg capsule 10 mg PO QID #120 caps 08/29/22 albuterol sulfate 90 mcg/actuation 1 inh inhalation QID PRN shortness 10/16/22 aerosol inhaler (Ventolin HFA) of breath or wheezing #8.5 grams fluticasone furoate 100 1 inh inhalation DAILY #60 ea 10/20/22 mcg-vilanterol 25 mcg/dose inhalation powder (Breo Ellipta) montelukast 10 mg tablet 10 mg PO DAILY 60 days #60 tabs 03/30/23 (Singulair) clonazepam 0.5 mg tablet (Klonopin) 0.5 mg PO DAILY PRN panic attack 02/02/25 #14 tabs Allergies Allergy/AdvReac Type Severity Reaction Status Date / Time No Known Allergies Allergy Verified 10/16/22 08:48 [facility] ED PFSH: Medical History Anxiety Asthma Tricuspid valve regurgitation Surgical History History of esophagogastroduodenoscopy (EGD) 02/07/22 Family History Mother Arrhythmia Social History Smoking and tobacco/nicotine status: former use of tobacco/nicotine Quit status (tobacco/nicotine): has quit using Year quit tobacco: 2014 Former quit date comment: 1ppd x 4 years Alcohol intake: former Substance/Drug Use: never Course Consultations: Consultation #1: Spoke to Dr. Patrick at [facility] who accepts patient. Vital Signs: Vital signs: Vital Signs Temperature 98.2 F 02/26/25 10:12 Pulse Rate 73 02/26/25 16:00 Respiratory Rate 18 02/26/25 10:12 Blood Pressure 132/85 02/26/25 16:00 Pulse Oximetry 99 02/26/25 16:00 Oxygen Delivery Me thod Room Air 02/26/25 10:12 [facility] - Psych Medical Decision Making Patient will be transferred to [facility] for psychiatric assessment. Lab Data 02/26/25 10:27 02/26/25 10:27 Laboratory Results WBC 5.47 10^3/uL (3.29-11.43) 02/26/25 10:27 RBC 5.14 10^6/uL (3.85-5.65) 02/26/25 10:27 Hgb 15.30 g/dL (11.27-16.99) 02/26/25 10:27 Hct 46.5 % (37-53) 02/26/25 10:27 MCV 90.5 fl (82-101) 02/26/25 10:27 MCH 29.8 pg (27-33) 02/26/25 10:27 MCHC 32.9 g/dL (30-55) 02/26/25 10:27 RDW 11.7 % (12.1-15.1) L 02/26/25 10:27 Plt Count 192 10^3/cmm (157-399) 02/26/25 10:27 MPV 9.0 fL (7.4-10.4) 02/26/25 10:27 Neut % (Auto) 69.4 % 02/26/25 10:27 Lymph % (Auto) 21.4 % 02/26/25 10:27 [place] % (Auto) 7.9 % 02/26/25 10:27 Eos % (Auto) 0.7 % 02/26/25 10:27 Baso % (Auto) 0.2 % 02/26/25 10:27 Neut # (Auto) 3.80 10^3/uL (1.8-7.7) 02/26/25 10:27 Lymph # (Auto) 1.2 10^3/uL (0.8-4.8) 02/26/25 10:27 [place] # (Auto) 0.4 10^3/uL (0.2-0.9) 02/26/25 10:27 Eos # (Auto) 0.0 10^3/uL (0.0-0.8) 02/26/25 10:27 Baso # (Auto) 0.0 10^3/uL (0.0-0.1) 02/26/25 10:27 Nucleated RBC % (auto) 0 % 02/26/25 10:27 Nucleated RBCs # 0.0 /100WBC 02/26/25 10:27 Sodium 139 mmol/L (136-145) 02/26/25 10:27 Potassium 3.8 mmol/L (3.5-5.1) 02/26/25 10:27 Chloride 104 mmol/L (98-107) 02/26/25 10:27 Carbon Dioxide 20 mmol/L (22-29) L 02/26/25 10:27 Anion Gap 18.8 (5-19) 02/26/25 10:27 BUN 12 mg/dL (6-20) 02/26/25 10:27 Creatinine 0.7 mg/dL (0.7-1.2) 02/26/25 10:27 GFR Calculation 128.3 mL/min (90-130) 02/26/25 10:27 Glucose 121 mg/dL (65-115) H 02/26/25 10:27 Calculated Osmolality 289 mOsm/kg (285-295) 02/26/25 10:27 Calcium 9.4 mg/dL (8.5-10.5) 02/26/25 10:27 Total Bilirubin 0.5 mg/dL (0.15-1.2) 02/26/25 10:27 AST 19 U/L (0-40) 02/26/25 10:27 ALT 34 U/L (0-41) 02/26/25 10:27 Alkaline Phosphatase 59 U/L (40-130) 02/26/25 10:27 Total Protein 6.6 g/dL (6.6-8.7) 02/26/25 10:27 Albumin 4.4 g/dL (3.5-5.2) 02/26/25 10:27 Globulin 2.2 g/dL (1.3-4.6) 02/26/25 10:27 Salicylates < 0.3 mg/dL (3-10) L 02/26/25 10:27 Urine Opiates Screen Negative ng/mL (Negative) 02/26/25 10:11 Acetaminophen < 5.0 ug/mL (10-30) L 02/26/25 10:27 Ur Barbiturates Screen Negative ng/mL (Negative) 02/26/25 10:11 Ur Phencyclidine Scrn Negative ng/mL (Negative) 02/26/25 10:11 Ur Amphetamines Screen Negative ng/mL (Negative) 02/26/25 10:11 U Benzodiazepines Scrn Negative ng/mL (Negative) 02/26/25 10:11 Urine Cocaine Screen Negative ng/mL (Negative) 02/26/25 10:11 U Marijuana (THC) Screen Negative ng/mL (Negative) 02/26/25 10:11 Ethyl Alcohol < 10 mg/dL (0-10) 02/26/25 10:27 Influenza A (PCR) Negative (Negative) 02/26/25 10:34 Influenza Type B (PCR) Negative (Negative) 02/26/25 10:34 RSV (PCR) Negative (Negative) 02/26/25 10:34 SARS-CoV-2 (PCR) Negative (Negative) 02/26/25 10:34 Discharge Plan Discharge Patient Disposition: Xfer Psychiatric Hosp Clinical Impression: Suicidal ideation, Depression Condition: Stable Referrals: Umang Mcnally MD [Primary Care Provider, Family Practice] Print Language: Cypriot Coding Level of Care Code ED Account Service Representative for Alexei Ladd
--- NOTE | 2025-02-26 10:29 | ECG_ITS ---
[employer] Test Date: 2025-02-26 Pat Name: Manuel Garner Department: Room: Gender: Male Clipper Counters: : 1990 Requested By: Remi Banuelos Order Number: [id number] Reading MD: Measurements Intervals [place] Rate: 54 P: 54 DC: 167 QRS: 70 QRSD: 96 T: 62 QT: 397 QTc: 378 Interpretive Statements SINUS BRADYCARDIA INCOMPLETE RIGHT BUNDLE BRANCH BLOCK [90+ ms QRS DURATION, TERMINAL R IN V1/V2, 40+ ms S IN I/aVL/V4/V5/V6] Compared to ECG 02/02/2025 01:12:15 No significant changes [email or web address]
[2025-02-26] MEDS: LORazepam 1 MG/0.5 ML injection 2 MG IM (10:31)
[2025-02-26 10:32] LABS: Hematocrit 46.5 % (37-53); Hemoglobin 15.30 g/dL (11.27-16.99); Mean Corpuscular HGB Conc 32.9 g/dL (30-55); Mean Corpuscular Hemoglobin 29.8 pg (27-33); Mean Corpuscular Volume 90.5 fl (82-101); Nucleated Red Blood Cells % 0 %; Platelet Count 192 10^3/cmm (157-399); Red Blood Count 5.14 10^6/uL (3.85-5.65); White Blood Count 5.47 10^3/uL (3.29-11.43)
[2025-02-26 10:47] LABS: PCP Screen Urine Negative (Negative)
[2025-02-26 10:53] LABS: Acetaminophen < 5.0 ug/mL (10-30); Alanine Aminotransferase 34 U/L (0-41); Albumin Level 4.4 g/dL (3.5-5.2); Alcohol Level < 10 mg/dL (0-10); Alkaline Phosphatase 59 U/L (40-130); Anion Gap 18.8 (5-19); Aspartate Amino Transferase 19 U/L (0-40); Blood Urea Nitrogen 12 mg/dL (6-20); Calcium 9.4 mg/dL (8.5-10.5); Carbon Dioxide 20 mmol/L (22-29); Chloride 104 mmol/L (98-107); Creatinine Clr Calc Pharmacy 126.9192; Globulin 2.2 g/dL (1.3-4.6); Glucose 121 mg/dL (65-115); Osmolality Calculated 289 mOsm/kg (285-295); Potassium 3.8 mmol/L (3.5-5.1); Salicylate < 0.3 mg/dL (3-10); Sodium 139 mmol/L (136-145); Total Protein 6.6 g/dL (6.6-8.7)
[2025-02-26 12:16] LABS: Respiratory Syncytial Virus Ce NEGATIVE (Negative); SARS-CoV-2 PCR NEGATIVE (Negative)
--- NOTE | 2025-02-26 15:50 | PC.NURSE ---
96 hr rights reviewed with pt @11[address] [facility] financial administration officer Cameron. All education reviewed with pt at this time. Pt verbalized understanding to hold parameters, and had no questions for this HS. Pt copy was left @bedside with pt. Pt declined wanting a drink, but did ask about a lunch tray. HS asked that the ER UC place an order for lunch tray to be provided to him.
[2025-02-26 16:00] VITALS: BP 132/85; PULSE 73; O2SAT 99
[2025-02-26 19:45] VITALS: BP 118/72; PULSE 81; RESP 16; TEMP 36.8; O2SAT 95
== END 2025-02-26 22:05 ==
PROVIDERS: Emergency Medicine; Emergency Provider Physician Assistant; PCP Family Medicine
DX: R45.851 Suicidal ideations (principal); F32.A Depression, unspecified; Z87.891 Personal history of nicotine dependence; Z11.52 Encounter for screening for COVID-19
CPT/HCPCS: 80053; 80306; 80307; 85025; 87637; 93005; 93010; 96372; 99284; J2060

== ENCOUNTER 2025-03-02 12:43 | Inpatient (IN) | payer OTHER, SELFPAY ==
[2025-03-02 13:03] VITALS: BP 122/85; PULSE 69; RESP 18; TEMP 36.4; O2SAT 100; BMI 26.1
--- NOTE | 2025-03-02 13:43 | ED_ITS ---
HPI - Anxiety 2 General: Chief Complaint: Anxiety Stated Complaint: SSRI withdraw sent from crisis center Time Seen by Provider: 03/02/25 13:36 History of Present Illness: 34-year-old male presents to the emergen cy room complaining of anxiety depression. Patient states several weeks ago he was started with his primary care doctor on sertraline at 25 mg daily after about 2 weeks that he stopped for 4 days no switch to trazodone Lexapro 10 mg daily those did not work either he was taken off of those in the interim he presented to the emergency room with severe anxiety and was ultimately admitted to [place] because there were not beds available at our facility. He was discharged from there yesterday still complaining of severe anxiety and uneasiness. He endorses withdrawal from SSRIs. He was started on Seroquel while he was there but does not like the side effects. He denies any homicidal or suicidal ideation. Associated symptoms: Deny chest pain, chills or fever(s) Related Data Home Medications ?Medication ?Instructions ?Recorded ?Confirmed escitalopram oxalate 10 mg tablet 10 mg PO DAILY 03/0203/02/25 montelukast 10 mg tablet 10 mg PO DAILY 03/02/2502/21 (Singulair) trazodone 50 mg tablet 50 mg PO BEDTIME 03/02/25 Previous Rx's ?Medication ?Instructions ?Recorded clonazepam 0.5 mg tablet (Klonopin) 0.5 mg PO DAILY NM N panic attack 02/02/25 #14 tabs Allergies Allergy/AdvReac Type Severity Reaction Status Date / Time No Known Allergies Allergy Verified 10/16/22 08:48 Review of Systems 2 Const: Denies: fever(s) or chills Card: Denies: chest pain Resp: Denies: dyspnea GI: Denies: abdominal pain : Denies: dysuria, urinary frequency or urinary urgency Musc: Denies: neck pain or back pain Skin/Breast: Denies: rash PFSH ED 2 PFSH: Medical History Anxiety Asthma Tricuspid valve regurgitation Surgical History History of esophagogastroduodenoscopy (EGD) 02/07/22 Family History Mother Arrhythmia Social History Smoking and tobacco/nicotine status: former use of tobacco/nicotine Quit status (tobacco/nicotine): has quit using Year quit tobacco: 2014 Former quit date comment: 1ppd x 4 years Alcohol intake: former Substance/Drug Use: never Physical Exam 2 Const: GENERAL APPEARANCE: cooperative ORIENTATION/CONSCIOUSNESS: Yes awake, Yes oriented to person, Yes oriented to place and Yes oriented to time HENMT: COMMON NORMALS: normocephalic, atraumatic and hearing grossly normal bilaterally HEAD & SCALP: normocephalic and atraumatic Resp: COMMON NORMALS: normal respiratory effort, No retractions, No use of accessory muscles and clear to auscultation bilaterally AUSCULTATION: clear to auscultation bilaterally Cardio: COMMON NORMALS: regular rate, regular rhythm and No murmurs present (Cardio) RATE: regular rate RHYTHM: regular rhythm GI: COMMON NORMALS: Soft to palpation and No hepatosplenomegaly present A USCULTATION: Yes normoactive bowel sounds PALPATION: Yes Soft to palpation, No Tenderness to palpation present (GI), No Guarding due to palpation present (GI) and Yes No hepatosplenomegaly present Extremity: COMMON NORMALS: normal to inspection, capillary refill normal, no clubbing, cyanosis or edema, no calf tenderness and no pedal edema Neuro: SENSORIUM/ORIENTATION: Yes oriented to person, Yes oriented to place and Yes oriented to time Skin: COMMON NORMALS: no rashes or lesions noted GENERAL SKIN EXAM: no rashes or lesions noted Course 2 Vital Signs: Vital signs: Vital Signs Temperature 97.8 F 03/02/25 15:33 Pulse Rate 71 03/02/25 15:33 Respiratory Rate 16 03/02/25 15:33 Blood Pressure 126/84 03/02/25 15:33 Pulse Oximetry 100 03/02/25 15:33 Oxygen Delivery Me thod Room Air 03/02/25 15:33 MDM - Anxiety Medical Decision Making Nurses note mentions that the patient had been Dejah send when asked about it he said they had talked about you going to crisis into the emergency room but he would come here because his primary care physician instructed him to do so I do not believe he is at crisis center earlier today. Patient is very distraught with this he states he feels like this whole episode is killing him. He continually denies homicidal or suicidal ideation discussed Dr. Lemus will admit to the [facility] to further evaluate and initiate observer medications. Medical Records I reviewed the patient's medical records. Lab Data I reviewed the patient's lab results. 03/02/25 14:06 03/02/25 14:06 Laboratory Results WBC 8.52 10^3/uL (3.29-11.43) 03/02/25 14:06 RBC 5.27 10^6/uL (3.85-5.65) 03/02/25 14:06 Hgb 16.20 g/dL (11.27-16.99) 03/02/25 14:06 Hct 47.7 % (37-53) 03/02/25 14:06 MCV 90.5 fl (82-101) 03/02/25 14:06 MCH 30.7 pg (27-33) 03/02/25 14:06 MCHC 34.0 g/dL (30-55) 03/02/25 14:06 RDW 11.8 % (12.1-15.1) L 03/02/25 14:06 Plt Count 207 10^3/cmm (157-399) 03/02/25 14:06 MPV 8.9 fL (7.4-10.4) 03/02/25 14:06 Neut % (Auto) 77.3 % 03/02/25 14:06 Lymph % (Auto) 15.0 % 03/02/25 14:06 Cross % (Auto) 6.5 % 03/02/25 14:06 Eos % (Auto) 0.5 % 03/02/25 14:06 Baso % (Auto) 0.2 % 03/02/25 14:06 Neut # (Auto) 6.59 10^3/uL (1.8-7.7) 03/02/25 14:06 Lymph # (Auto) 1.3 10^3/uL (0.8-4.8) 03/02/25 14:06 Cross # (Auto) 0.6 10^3/uL (0.2-0.9) 03/02/25 14:06 Eos # (Auto) 0.0 10^3/uL (0.0-0.8) 03/02/25 14:06 Baso # (Auto) 0.0 10^3/uL (0.0-0.1) 03/02/25 14:06 Nucleated RBC % (auto) 0 % 03/02/25 14:06 Nucleated RBCs # 0.0 /100WBC 03/02/25 14:06 Sodium 139 mmol/L (136-145) 03/02/25 14:06 Potassium 3.7 mmol/L (3.5-5.1) 03/02/25 14:06 Chloride 102 mmol/L (98-107) 03/02/25 14:06 Carbon Dioxide 23 mmol/L (22-29) 03/02/25 14:06 Anion Gap 17.7 (5-19) 03/02/25 14:06 BUN 14 mg/dL (6-20) 03/02/25 14:06 Creatinine 0.7 mg/dL (0.7-1.2) 03/02/25 14:06 GFR Calculation 128.3 mL/min (90-130) 03/02/25 14:06 Glucose 93 mg/dL (65-115) 03/02/25 14:06 Calculated Osmolality 288 mOsm/kg (285-295) 03/02/25 14:06 Calcium 9.4 mg/dL (8.5-10.5) 03/02/25 14:06 Total Bilirubin 0.7 mg/dL (0.15-1.2) 03/02/25 14:06 AST 22 U/L (0-40) 03/02/25 14:06 ALT 38 U/L (0-41) 03/02/25 14:06 Alkaline Phosphatase 63 U/L (40-130) 03/02/25 14:06 Total Protein 7.1 g/dL (6.6-8.7) 03/02/25 14:06 Albumin 4.5 g/dL (3.5-5.2) 03/02/25 14:06 Globulin 2.6 g/dL (1.3-4.6) 03/02/25 14:06 No radiology studies performed this visit Discharge Plan Discharge Patient Disposition: Admitted As Inpatient Admit Provider: Brayden Lemus Clinical Impression: Depression, Anxiety Condition: Stable Coding Level of Care Code ED Cigar Wrapper Tender Automatic for Alexei Ladd
--- NOTE | 2025-03-02 14:32 | PC.PHAR ---
Patient was prescribed Quitipine 100 mg and Hydrxyzine Hydrochloride 25mg on 03/01/[address] Eliceo Breen . Pharmacy states they were not picked up .I did not add them to his medication list .
[2025-03-02 14:37] LABS: Hematocrit 47.7 % (37-53); Hemoglobin 16.20 g/dL (11.27-16.99); Mean Corpuscular HGB Conc 34.0 g/dL (30-55); Mean Corpuscular Hemoglobin 30.7 pg (27-33); Mean Corpuscular Volume 90.5 fl (82-101); Nucleated Red Blood Cells % 0 %; Platelet Count 207 10^3/cmm (157-399); Red Blood Count 5.27 10^6/uL (3.85-5.65); White Blood Count 8.52 10^3/uL (3.29-11.43)
[2025-03-02 14:53] LABS: Alanine Aminotransferase 38 U/L (0-41); Albumin Level 4.5 g/dL (3.5-5.2); Alkaline Phosphatase 63 U/L (40-130); Anion Gap 17.7 (5-19); Aspartate Amino Transferase 22 U/L (0-40); Blood Urea Nitrogen 14 mg/dL (6-20); Calcium 9.4 mg/dL (8.5-10.5); Carbon Dioxide 23 mmol/L (22-29); Chloride 102 mmol/L (98-107); Creatinine Clr Calc Pharmacy 131.4550; Globulin 2.6 g/dL (1.3-4.6); Glucose 93 mg/dL (65-115); Osmolality Calculated 288 mOsm/kg (285-295); Potassium 3.7 mmol/L (3.5-5.1); Sodium 139 mmol/L (136-145); Total Protein 7.1 g/dL (6.6-8.7)
[2025-03-02 15:33] VITALS: BP 126/84; PULSE 71; RESP 16; TEMP 36.6; O2SAT 100
[2025-03-02 19:30] VITALS: BP 115/81; PULSE 71; RESP 18; TEMP 36.4; O2SAT 97
[2025-03-03 06:00] VITALS: BP 112/66; PULSE 76; RESP 16; TEMP 36.6; O2SAT 98
--- NOTE | 2025-03-03 06:57 | P.NPUHP_ITS ---
Providers/Chief Complaint 2 Admitting Physician: Brayden Lemus MD Primary Care Provider: Umang Mcnally MD Chief Complaint: SSRI withdraw sent from crisis center HPI NPU History of Present Illness Manuel Garner is a 34 year old male who presented to the emergency department with the following report: Chief Complaint: Anxiety Stated Complaint: SSRI withdraw sent from crisis center Time Seen by Provider: 03/02/25 13:36 History of Present Illness: 34-year-old male presents to the emergency room complaining of anxiety depression. Patient states several weeks ago he was started with his primary care doctor on sertraline at 25 mg daily after about 2 weeks that he stopped for 4 days no switch to trazodone Lexapro 10 mg daily those did not work either he was taken off of those in the interim he presented to the emergency room with severe anxiety and was ultimately admitted to [facility] because there were not beds available at our facility. He was discharged from there yesterday still complaining of severe anxiety and uneasiness. He endorses withdrawal from SSRIs. He was started on Seroquel while he was there but does not like the side effects. He denies any homicidal or suicidal ideation. Associated symptoms: Deny chest pain, chills or fever(s) He was admitted to the neuropsychiatric unit for definitive treatment of those issues. He is unknown to [facility] psychiatric services through inpatient or outpatient services. He denies significant outpatient services and only the 1 inpatient admission that happened in the past week or so when he was not able to be admitted to this unit because it was full. He presents today with a negative UDS and unremarkable BAL reporting that he is only taking the trazodone and the rescue Klonopin is being given to him in this past month but trying to get things under control from he was started on the Zoloft. He reports that coming on SSRIs has been challenging for him when he was on them before which was for a couple years starting in about 2020 and then he was off of them for about a year and a half and then he got back on the. He reports that he had struggled with getting on Zoloft years ago but that once he got on a conservative well for couple years. He reports he got off of it and that was difficult but he did well and now he was having some moderate anxiety a couple months ago which was attempted to be managed by Zoloft but he really struggled with with intestinal issues and GI issues in the attempt. Now at the outside hospital where he was admitted for mental health challenges they tried him on Lexapro, gave him Klonopin for rescue medication and was given trazodone for sleep which is the compounded by them adding Seroquel for sleep milligram and still his sleep is good horrible he reports over the past few weeks. The patient stopped the Lexapro and is still having anxiety. Feels worse with reportedly proximately 3 weeks with limited sleep but no euphoria or irritability suggestive of bipolar disorder. He reports that since he stopped the Lexapro and Seroquel his sleep is gotten a little better but in reality he reports this is going very difficult. Reviewed his psychosocial history which was significant for no other symptoms of psychosis, PTSD, OCD or things that nature. Endorsed a family history of addiction issues on both sides of the family. Had been mental health and both of the family with his dad already from addiction related issues mother being out for but contact. He reportedly has mental health issues that they would have felt secondary to this condition. Suicide attempts or completions in family. Developmental screening is negative in the patient hospital is from the [place]. Endorsed sexual there is limited relationship to his himself alone. We discussed the risks, benefits and alternatives with him initiating propranolol 20 mg p.o. 3 times daily as needed for treatment of his anxiety we discussed possibility of BuSpar and/or Wellbutrin XL for medication options avoiding SSRI. He understood and agreed proceed as documented in this note. He identified that he has. And is open to us trying some different options to see if they work, but he is already trying to discuss discharge by tomorrow. Meds NPU Home Medications ?Medication ?Instructions ?Recorded ?Confirmed ?Last Taken ?Type clonazepam 0.5 mg tablet (Klonopin) 0.5 mg PO DAILY [place] panic attack 02/02/25 03/02/25 Unknown Rx #14 tabs escitalopram oxalate 10 mg tablet 10 mg PO DAILY 03/0203/02/25 Unknown History montelukast 10 mg tablet 10 mg PO DAILY 03/02/25/03/01/25 History (Singulair) trazodone 50 mg tablet 50 mg PO BEDTIME 03/02/2503/01/25 History Allergies Allergy/AdvReac Type Severity Reaction Status Date / Time No Known Allergies Allergy Verified 10/16/22 08:48 PFSH NPU 2 PFSH: Medical History (Updated 03/02/25 @ 15:58 by Erwin Jain DO) Anxiety Asthma Tricuspid valve regurgitation Surgical History History of esophagogastroduodenoscopy (EGD) 02/07/22 Family History Mother Arrhythmia Social History Smoking and tobacco/nicotine status: former use of tobacco/nicotine Quit status (tobacco/nicotine): has quit using Year quit tobacco: 2014 Former quit date comment: 1ppd x 4 years Alcohol intake: former Substance/Drug Use: never Mental Status Exam 2 MSE Comments: This is a well-nourished well-developed white male in hospital scrubs with limited grooming and fair eye contact. No abnormal movements. He was mostly cooperative with exam in mild to moderate distress. Speech was slightly decreased rate and normal in volume. Mood described as okay but frustrated. His affect was congruent. Thought process was organized. Thought content: Patient denied suicidal or homicidal ideation. There were no delusions reported or noted, he did not report auditory or visual hallucinations. Attention and concentration were intact and his recent and remote memory appeared reliable, but none were formally tested. He is alert and oriented x 3. Insight and judgment are appears fair. Impulse control is limited. Vitals/I&O/Wt Last Vital Signs Temp 97.9 F 03/03/25 06:00 Pulse 76 03/03/25 06:00 Resp 16 03/03/25 06:00 BP 112/66 03/03/25 06:00 Pulse Ox 98 03/03/25 06:00 O2 Del Method Room Air 03/03/25 06:00 Weight last 48 hrs Weight 68.946 kg Data NPU 03/02/25 14:06 03/02/25 14:06 A&P Assessment and plan 1. Anxiety: 2. Suicidal ideation: 3. Depression: Plan: This is a 34-year-old white male with a reported long history of anxiety with recent hospitalization in [facility] which was his first hospitalization in his life secondary to struggling with trying to manage initiation of an SSRI which she was not responding well to and they switched him to Lexapro from the Zoloft but he still Having difficulties with getting worse on an SSRI. He reports this is all to treat anxiety that was basically mild in the beginning and now he feels worse that he is felt. 1. Continue current medication except initiate propranolol 20 mg p.o. 3 times daily as needed. 2. Encourage individual, group and milieu therapy. 3. Continue every 15 minute checks for safety. 4. Encourage sober living treatment after discharge at the highest level of care to which she is willing to commit. 5. Evaluate for safety. PDMP PDMP Reviewed: Not Reviewed Attestations NPU 2 Medical Necessity Statement*: Inpatient hospitalization is medically necessary and the clinically appropriate intervention at this time. We will monitor medications and make changes as indicated. Patient will be in the hospital for over two midnights. The patient's likely length of stay is 1-3 days. Coding Level of Care Code Acute Code for [facility] Fwd Diagnoses Anxiety F41.9 Suicidal ideation R45.851 Depression F32.A
[2025-03-03 10:11] LABS: Glucose Urine UA Negative (Normal); Nitrate Urine Negative (Negative); Specific Gravity, Urine 1.008 (1.005-1.030)
[2025-03-03 10:16] LABS: Add Urine Microscopic? YES
[2025-03-03 10:36] LABS: PCP Screen Urine Negative (Negative)
[2025-03-03 14:00] VITALS: BP 120/73; PULSE 62; RESP 16; TEMP 36.7
[2025-03-03 19:37] VITALS: BP 121/82; PULSE 74; RESP 17; TEMP 36.7; O2SAT 99
[2025-03-04 00:52] VITALS: BP 100/68; PULSE 87; RESP 18; TEMP 36.6; O2SAT 95
[2025-03-04 10:05] VITALS: BP 114/78
--- NOTE | 2025-03-04 10:25 | P.NPUDS_ITS ---
Diagnoses at Discharge Discharge Diagnosis 1. Suicidal ideation: 2. Depression: Reason for Visit Reason for Visit: SSRI withdraw sent from crisis center Brief History: History of Present Illness Manuel Garner is a 34 year old male who presented to the emergency department with the following report: Chief Complaint: Anxiety Stated Complaint: SSRI withdraw sent from crisis center Time Seen by Provider: 03/02/25 13:36 History of Present Illness: 34-year-old male presents to the emergen cy room complaining of anxiety depression. Patient states several weeks ago he was started with his primary care doctor on sertraline at 25 mg daily after about 2 weeks that he stopped for 4 days no switch to trazodone Lexapro 10 mg daily those did not work either he was taken off of those in the interim he presented to the emergency room with severe anxiety and was ultimately admitted to [facility] because there were not beds available at our facility. He was discharged from there yesterday still complaining of severe anxiety and uneasiness. He endorses withdrawal from SSRIs. He was started on Seroquel while he was there but does not like the side effects. He denies any homicidal or suicidal ideation. Associated symptoms: Deny chest pain, chills or fever(s) He was admitted to the neuropsychiatric unit for definitive treatment of those issues. He is unknown to [facility] psychiatric services through in patient or outpatient services. He denies significant outpatient services and only the 1 inpatient admission that happened in the past week or so when he was not able to be admitted to this unit because it was full. He presents today with a negative UDS and unremarkable BAL reporting that he is only taking the trazodone and the rescue Klonopin is being given to him in this past month but trying to get things under control from he was started on the Zoloft. He reports that coming on SSRIs has been challenging for him when he was on them before which was for a couple years starting in about 2020 and then he was off of them for about a year and a half and then he got back on the. He reports that he had struggled with getting on Zoloft years ago but that once he got on a conservative well for couple years. He reports he got off of it and that was difficult but he did well and now he was having some moderate anxiety a couple months ago which was attempted to be managed by Zoloft but he really struggled with with intestinal issues and GI issues in the attempt. Now at the outside hospital where he was admitted for mental health challenges they tried him on Lexapro, gave him Klonopin for rescue medication and was given trazodone for sleep which is the compounded by them adding Seroquel for sleep milligram and still his sleep is good horrible he reports over the past few weeks. The patient stopped the Lexapro and is still having anxiety. Feels worse with reportedly proximately 3 weeks with limited sleep but no euphoria or irritability suggestive of bipolar disorder. He reports that since he stopped the Lexapro and Seroquel his sleep is gotten a little better but in reality he reports this is going very difficult. Reviewed his psychosocial history which was significant for no other symptoms of psychosis, PTSD, OCD or things that nature. Endorsed a family history of addiction issues on both sides of the family. Had been mental health and both of the family with his dad already from addiction related issues mother being out for but contact. He reportedly has mental health issues that they would have felt secondary to this condition. Suicide attempts or completions in family. Developmental screening is negative in the patient hospital is from the [facility]. Endorsed sexual there is limited relationship to his himself alone. We discussed the risks, benefits and alternatives with him initiating propranolol 20 mg p.o. 3 times daily as needed for treatment of his anxiety we discussed possibility of BuSpar and/or Wellbutrin XL for medication options avoiding SSRI. He understood and agreed proceed as documented in this note. He identified that he has. And is open to us trying some different options to see if they work, but he is already trying to discuss discharge by tomorrow. Hospital Course Hospital Course He slowly acclimated to the individual, group and milieu therapies provided. He presented to the hospital with depression with significant issues related to not adjusting to SSRIs he has been prescribed per his report. Additionally he endorses that across this time he has been unable to sleep. We did not restart his SSRI. We continued his home medications except for those. He was started on propranolol for his anxiety which she reported was quite helpful and ultimately gave him Ambien 10 mg p.o. nightly for sleep. He was negative for all drugs of abuse on his BAL and drug screen. The initiation of propranolol and Ambien and being in the treatment milieu led to a positive response though he was voluntary and was not very open to staying longer to make sure the observation of good sleep on his last night was a pattern and not just an incident. He worked with the social work team to make sure he had appropriate outpatient care scheduled and connection the community resources. He had modest improvement during the hospitalization and was able to contract for safety outside the hospital prior to discharge. During the hospitalization, patient had routine laboratory studies which were within normal limits except for few outliers. Additionally there was a general medical evaluation which was also within normal limits and revealed no new acute processes. Discharge Summary: At the time of discharge, he denied psychosis or lethality. Mood and anxiety were well managed. Patient endorsed a plan to avoid all drugs of abuse and follow-up with the aftercare recommendations of the treatment team. Patient was evaluated and deemed to be absent credible lethality, and he was voluntary and no longer wanting inpatient hospitalization, so was discharged. Involuntary Hold Information Hold Status: Date/Time Hold Expires: VOL Mental Status Exam MSE Comments: This is a well-nourished well-developed white male in hospital scrubs with limited grooming and fair eye contact. No abnormal movements. He was mostly cooperative with exam in mild distress. Speech was slightly decreased rate and normal in volume. Mood described as better. His affect was congruent. Thought process was organized. Thought content: Patient denied suicidal or homicidal ideation. There were no delusions reported or noted, he did not report auditory or visual hallucinations. Attention and concentration were intact and his recent and remote memory appeared reliable, but none were formally tested. He is alert and oriented x 3. Insight and judgment are appears fair. Impulse control is limited. Discharge Data Studies Completed and Pending: Laboratory Results WBC 8.52 10^3/uL (3.2 9-11.43) 03/02/25 14:06 RBC 5.27 10^6/uL (3.8 5-5.65) 03/02/25 14:06 Hgb 16.20 g/dL (11.27 -16.99) 03/02/25 14:06 Hct 47.7 % (37-53) 03/02/25 14:06 MCV 90.5 fl (82-101) 03/02/25 14:06 MCH 30.7 pg (27-33) 03/02/25 14:06 MCHC 34.0 g/dL (30-55) 03/02/25 14:06 RDW 11.8 % (12.1-15.1 ) L 03/02/25 14:06 Plt Count 207 10^3/cmm (157 -399) 03/02/25 14:06 MPV 8.9 fL (7.4-10.4) 03/02/25 14:06 Neut % (Auto) 77.3 % 03/02/25 14:06 Lymph % (Auto) 15.0 % 03/02/25 14:06 [place] % (Auto) 6.5 % 03/02/25 14:06 Eos % (Auto) 0.5 % 03/02/25 14:06 Baso % (Auto) 0.2 % 03/02/25 14:06 Neut # (Auto) 6.59 10^3/uL (1.8 -7.7) 03/02/25 14:06 Lymph # (Auto) 1.3 10^3/uL (0.8- 4.8) 03/02/25 14:06 [place] # (Auto) 0.6 10^3/uL (0.2- 0.9) 03/02/25 14:06 Eos # (Auto) 0.0 10^3/uL (0.0- 0.8) 03/02/25 14:06 Baso # (Auto) 0.0 10^3/uL (0.0- 0.1) 03/02/25 14:06 Nucleated RBC % (a uto) 0 % 03/02/25 14:06 Nucleated RBCs # 0.0 /100WBC 03/02/25 14:06 Sodium 139 mmol/L (136-1 45) 03/02/25 14:06 Potassium 3.7 mmol/L (3.5-5 .1) 03/02/25 14:06 Chloride 102 mmol/L (98-10 7) 03/02/25 14:06 Carbon Dioxide 23 mmol/L (22-29) 03/02/25 14:06 Anion Gap 17.7 (5-19) 03/02/25 14:06 BUN 14 mg/dL (6-20) 03/02/25 14:06 Creatinine 0.7 mg/dL (0.7-1. 2) 03/02/25 14:06 GFR Calculation 128.3 mL/min (90- 130) 03/02/25 14:06 Glucose 93 mg/dL (65-115) 03/02/25 14:06 Calculated Osmolal ity 288 mOsm/kg (285- 295) 03/02/25 14:06 Calcium 9.4 mg/dL (8.5-10 .5) 03/02/25 14:06 Total Bilirubin 0.7 mg/dL (0.15-1 .2) 03/02/25 14:06 AST 22 U/L (0-40) 03/02/25 14:06 ALT 38 U/L (0-41) 03/02/25 14:06 Alkaline Phosphata se 63 U/L (40-130) 03/02/25 14:06 Total Protein 7.1 g/dL (6.6-8.7 ) 03/02/25 14:06 Albumin 4.5 g/dL (3.5-5.2 ) 03/02/25 14:06 Globulin 2.6 g/dL (1.3-4.6 ) 03/02/25 14:06 Urine Color Yellow (Yellow) 03/03/25 10:00 Urine Appearance Clear (CLEAR) 03/03/25 10:00 Urine pH 8.5 (5-7) A 03/03/25 10:00 Ur Specific Gravit y 1.008 (1.005-1.0 30) 03/03/25 10:00 Urine Protein Negative (Negati ve) 03/03/25 10:00 Urine Glucose (UA) Negative (Normal ) 03/03/25 10:00 Urine Ketones Negative (Negati ve) 03/03/25 10:00 Urine Blood Negative (Negati ve) 03/03/25 10:00 Urine Nitrate Negative (Negati ve) 03/03/25 10:00 Urine Bilirubin Negative (Negati ve) 03/03/25 10:00 Urine Urobilinogen 0.2 mg/dL (Negati ve) 03/03/25 10:00 Ur Leukocyte [place] ase Negative (Negati ve) 03/03/25 10:00 Urine RBC 0-2 /hpf (0-2) 03/03/25 10:00 Urine WBC 0-5 /hpf (0-5) 03/03/25 10:00 Ur Squamous Epith Cells 0-5 /hpf (0-5) 03/03/25 10:00 Amorphous Sediment Not Reportable 03/03/25 10:00 Urine Bacteria None seen /hpf (N ONE) 03/03/25 10:00 Hyaline Casts 0-4 /lpf H 03/03/25 10:00 Urine Opiates Scre en Negative ng/mL (N egative) 03/03/25 10:00 Ur Barbiturates Sc reen Negative ng/mL (N egative) 03/03/25 10:00 Ur Phencyclidine S crn Negative ng/mL (N egative) 03/03/25 10:00 Ur Amphetamines Sc reen Negative ng/mL (N egative) 03/03/25 10:00 U Benzodiazepines Scrn Negative ng/mL (N egative) 03/03/25 10:00 Urine Cocaine Scre en Negative ng/mL (N egative) 03/03/25 10:00 U Marijuana (THC) Screen Negative ng/mL (N egative) 03/03/25 10:00 Vitals: Last Vital Signs Temp 98.2 F 03/05/25 10:50 Pulse 63 03/05/25 10:50 Resp 17 03/05/25 10:50 BP 119/71 03/05/25 10:50 Pulse Ox 98 03/05/25 10:50 O2 Del Method Room Air 03/05/25 06:00 O2 Flow Rate 99 03/03/25 14:00 Discharge Plan Discharge Patient Disposition: Home Condition: Stable Prescriptions: New propranolol 20 mg Tablet 20 mg PO TID PRN (Reason: Anxiety) 30 Days Qty: 90 1RF hydroxyzine pamoate 25 mg Capsule 50 mg PO Q6H PRN (Reason: Anxiety) 30 Days Qty: 120 1RF zolpidem 10 mg tablet 10 mg PO BEDTIME 15 Days Qty: 15 3RF Continued clonazepam [Klonopin] 0.5 mg tablet 0.5 mg PO DAILY PRN (Reason: panic attack) Qty: 14 0RF montelukast [Singulair] 10 mg tablet 10 mg PO DAILY trazodone 50 mg tablet 50 mg PO BEDTIME 30 Days Qty: 30 1RF Discontinued escitalopram oxalate 10 mg tablet 10 mg PO DAILY Discharge Order = DC NOW: Discharge Order (Routine); Ordered 03/05/25 Ordered By: Brayden Lemus Referrals: [facility] [Outside] - 03/13/25 12:30 pm Referral Note: Initial appointment with Bereket Claros. Umang Mcnally MD [Primary Care Provider, Family Practice] - 03/09/25 10:15 am Referral Note: Follow up Discharge Diet: Regular Discharge Activity: Resume usual activity Patient Instructions: Propranolol (By mouth), Hydroxyzine (By mouth) (Vistaril), Zolpidem (By mouth) (Ambien, Rita CR, AmbienPAK, Gabazolpidem- 5,..., Opioid Safety, Patient Portal & [facility] Instructions Discharge Attestations NPU Time Spent in Discharge Care*: less than 30 min Specific Discharge Activities: Specific discharge activities: educating patient, discussing with case reviewer/social workers/dc planners, documenting/other paperwork and evaluating patient/reviewing data Coding Level of Care Code Acute Code for [facility] Fwd Diagnoses Anxiety F41.9 Suicidal ideation R45.851 Depression F32.A
[2025-03-04 14:00] VITALS: BP 120/75; PULSE 66; RESP 15; O2SAT 97
--- NOTE | 2025-03-04 18:10 | P.NPUPN_ITS ---
Subjective NPU 2 Subjective: Patient presented today reporting that he did not sleep last night. We discussed the fact that staff reports were that he did get sleep last night and then he reports responded that he did not feel rested. He reports that he feels like his brain is about to explode because of this month of major insomnia. 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 We discussed the fact that if he leaves he is not to have any more solutions that he has when he is here and it is better to be here where we can work on changes to create an environment that is the least tolerable to be managed as an outpatient. He denied any side effects of the medication and reported that the propranolol that we started yesterday was helpful. We discussed the risks, benefits and alternatives of a trial of Ambien and he understood and agreed to proceed as is documented in this note. Mental Status Exam 2 MSE Comments: This is a well-nourished well-developed white male in hospital scrubs with limited grooming and fair eye contact. No abnormal movements. He was mostly cooperative with exam in mild to moderate distress. Speech was slightly decreased rate and normal in volume. Mood described as okay but frustrated. His affect was congruent. Thought process was organized. Thought content: Patient denied suicidal or homicidal ideation. There were no delusions reported or noted, he did not report auditory or visual hallucinations. Attention and concentration were intact and his recent and remote memory appeared reliable, but none were formally tested. He is alert and oriented x 3. Insight and judgment are appears fair. Impulse control is limited. Vitals/I&O/Wt Last Vital Signs Temp 97.9 F 03/04/25 20:15 Pulse 68 03/04/25 20:15 Resp 18 03/04/25 20:15 BP 122/82 03/04/25 20:15 Pulse Ox 98 03/04/25 20:15 O2 Del Method Room Air 03/04/25 20:15 O2 Flow Rate 99 03/03/25 14:00 Weight last 48 hrs Weight 70.817 kg Data NPU 03/02/25 14:06 03/02/25 14:06 A&P Assessment and plan 1. Anxiety: 2. Suicidal ideation: 3. Depression: Plan: This is a 34-year-old white male with a reported long history of anxiety with recent hospitalization in [facility] which was his first hospitalization in his life secondary to struggling with trying to manage initiation of an SSRI which she was not responding well to and they switched him to Lexapro from the Zoloft but he still Having difficulties with getting worse on an SSRI. He reports this is all to treat anxiety that was basically mild in the beginning and now he feels worse that he is felt. 1. Continue current medication except initiate propranolol 20 mg p.o. 3 times daily as needed. Start Ambien 10 mg p.o. nightly for insomnia. 2. Encourage individual, group and milieu therapy. 3. Continue every 15 minute checks for safety. 4. Encourage sober living treatment after discharge at the highest level of care to which she is willing to commit. 5. Evaluate for safety. PDMP PDMP Reviewed: Not Reviewed Involuntary Hold Information 2 Hold Status: Date/Time Hold Expires: VOL Attestations NPU 2 Medical Necessity Statement*: Inpatient hospitalization is medically necessary and the clinically appropriate intervention at this time. We will monitor medications and make changes as indicated. The patient's likely length of stay is 1-3 days. Coding Level of Care Code Acute Code for [facility] Fwd Diagnoses Anxiety F41.9 Suicidal ideation R45.851 Depression F32.A
[2025-03-04 20:15] VITALS: BP 122/82; PULSE 68; RESP 18; TEMP 36.6; O2SAT 98
[2025-03-05 06:00] VITALS: BP 119/71; PULSE 63; RESP 17; TEMP 36.8; O2SAT 98; BMI 26.8
--- NOTE | 2025-03-05 07:55 | PC.NURSE ---
pt states he slept 4-5 hours last night and states he is ready for discharge. informed pt that I would notify doctor of his request for discharging today.
[2025-03-05 10:50] VITALS: BP 119/71; PULSE 63; RESP 17; TEMP 36.8; O2SAT 98
== END 2025-03-05 11:08 | disposition home or self-care (01) | DRG 881 ==
LOC: ER 13:45 → NP 14:19
PROVIDERS: Admitting Provider Psychiatry & Neurology Psychiatry; Emergency Provider Family Medicine; PCP Family Medicine; Visit Provider Psychiatry & Neurology Psychiatry
DX: F32.A Depression, unspecified (principal); R45.851 Suicidal ideations; F41.9 Anxiety disorder, unspecified
CPT/HCPCS: 36415; 80053; 80306; 81001; 85025; 97150; 97165; 99285; J9999

== ENCOUNTER → 2025-04-06 12:43 | Outpatient (BNVA) | payer OTHER, SELFPAY | PROVIDERS: PCP Family Medicine; Visit Provider Nurse Practitioner Psychiatric/Mental Health | DX: Z01.89 Encounter for other specified special examinations (principal) | CPT/HCPCS: 84439; 84443; 84481 ==